=== PATIENT | female | born 1955 | race Caucasian/White ===

== ENCOUNTER 2016-10-13 14:52 | Emergency (ER) | payer MEDICAID, OTHER ==
[~2016-10-13] VITALS: Ht 165.1 cm; Wt 54.4 kg
[2016-10-13] MEDS ORDERED: ASPIRIN EC 81 MG TABLET.DR PO ONE (15:26)
[2016-10-13] MEDS ORDERED: ASPIRIN 81 MG TAB.CHEW PO ONE (15:30)
[2016-10-13 15:43] LABS: BASOPHILS % (AUTO) 0.6 % (0.0-2.0); EOSINOPHILS # (AUTO) 0.1 /CMM (0.0-0.7); EOSINOPHILS % (AUTO) 1.7 % (0.0-6.0); HEMATOCRIT 41 % (33-45); HEMOGLOBIN 13.9 g/dL (11.5-14.8); LYMPHOCYTES # (AUTO) 2.6 /CMM (0.8-4.8); MEAN CORPUSCULAR HEMOGLOBIN 31 PG (26.0-33.0); MEAN CORPUSCULAR HGB CONC 34 g/dl (31.0-36.0); MEAN CORPUSCULAR VOLUME 91 fL (82-100); MONOCYTES # (AUTO) 0.6 /CMM (0.1-1.30); MONOCYTES % (AUTO) 7.2 % (2.0-12.0); NEUTROPHILS % (AUTO) 59.5 % (43.0-81.0); PLATELET COUNT (AUTO) 285 /CMM (150-450); RDW COEFFICIENT OF VARIATION 12.3 (11.5-15.0); RED BLOOD CELL COUNT(AUTO) 4.49 MIL/uL (4.0-5.2); WHITE BLOOD COUNT (AUTO) 8.3 K/uL (4.3-11.0)
[2016-10-13 15:52] LABS: CARBON DIOXIDE 30 mmol/L (21-32); CHLORIDE 103 mmol/L (98-107); CREATININE 0.8 mg/dL (0.6-1.3); GFR 73 mL/min (>60); GLUCOSE 102 mg/dL (74-106); POTASSIUM 3.6 mmol/L (3.5-5.1); SODIUM SERUM 140 mmol/L (136-145); UREA NITROGEN, BLOOD 9 mg/dL (7-18)
[2016-10-13 15:55] LABS: INR 1.02 (0.87-1.13); PROTHROMBIN TIME 10.6 SECS (9.5-12.7)
[2016-10-13 16:02] LABS: TROPONIN I < 0.017 ng/mL (0.00-0.056)
[2016-10-13 17:21] LABS: THYROID STIMULATING HORMONE 0.216 uIU/mL (0.358-3.74)
[2016-10-13 18:08] VITALS: BP 133/82
== END 2016-10-13 18:09 | disposition home or self-care (01) ==
LOC: ER 14:54
DX: R00.2 Palpitations (principal); R20.9 Unspecified disturbances of skin sensation; E05.90 Thyrotoxicosis, unspecified without thyrotoxic crisis or storm; F32.9 Major depressive disorder, single episode, unspecified; I10 Essential (primary) hypertension; R79.1 Abnormal coagulation profile; F17.200 Nicotine dependence, unspecified, uncomplicated; I24.9 Acute ischemic heart disease, unspecified; Z88.0 Allergy status to penicillin; Z72.0 Tobacco use; Z71.6 Tobacco abuse counseling
CPT/HCPCS: 36415; 71010; 80048; 84439; 84443; 84484; 85025; 85378; 85730; 93005; 99285; 99406; A4606; Z7610

== ENCOUNTER 2018-10-03 10:24 | Emergency (ER) | payer MEDICAID ==
[~2018-10-03] VITALS: Ht 167.6 cm; Wt 61.2 kg
[2018-10-03 10:24] VITALS: BP 127/75
== END 2018-10-03 10:52 | disposition home or self-care (01) ==
LOC: ER 10:28
DX: J20.9 Acute bronchitis, unspecified (principal); F10.10 Alcohol abuse, uncomplicated; F17.200 Nicotine dependence, unspecified, uncomplicated; Y90.9 Presence of alcohol in blood, level not specified; Z88.0 Allergy status to penicillin; Z90.710 Acquired absence of both cervix and uterus; Z60.2 Problems related to living alone
CPT/HCPCS: 99283; A4606

== ENCOUNTER 2021-08-15 13:20 | Inpatient (IN) | payer MEDICARE, OTHER ==
[~2021-08-15] VITALS: Ht 167.6 cm; Wt 61.2 kg
--- NOTE | 2021-08-15 13:40 | NUR ---
assume pt care, pt here c/o pressure like chest pain, non radiating, heaviness since last night. worst taking deep breaths. pt is a smoker, placed on monitor. stable vitals captain room service. [id number]. awaiting md nj.
--- NOTE | 2021-08-15 14:01 | NUR ---
dr alba at bedside for eval.
--- NOTE | 2021-08-15 14:10 | NUR ---
iv line started blood drawn and sent to lab.
[2021-08-15 14:46] LABS: BASOPHILS # (AUTO) 0.1 K/uL (0.0-0.2); BASOPHILS % (AUTO) 1.1 % (0.0-2.0); EOSINOPHILS % (AUTO) 3.5 % (0.0-6.0); HEMATOCRIT 41 % (33-45); HEMOGLOBIN 13.7 g/dL (11.5-14.8); LYMPHOCYTES # (AUTO) 1.9 K/uL (0.8-4.8); LYMPHOCYTES % (AUTO) 22.6 % (20.0-44.0); MEAN CORPUSCULAR HGB CONC 34 g/dl (31.0-36.0); MEAN CORPUSCULAR VOLUME 93 fL (82-100); MONOCYTES # (AUTO) 0.7 K/uL (0.1-1.30); MONOCYTES % (AUTO) 8.7 % (2.0-12.0); NEUTROPHILS # (AUTO) 5.3 K/uL (1.8-8.9); NEUTROPHILS % (AUTO) 64.1 % (43.0-81.0); PLATELET COUNT (AUTO) 274 K/uL (150-450); RED BLOOD CELL COUNT(AUTO) 4.37 MIL/uL (4.0-5.2); WHITE BLOOD COUNT (AUTO) 8.3 K/uL (4.3-11.0)
[2021-08-15 15:18] LABS: CALCIUM, SERUM 9.1 mg/dL (8.5-10.1); CARBON DIOXIDE 30 mmol/L (21-32); CHLORIDE 101 mmol/L (98-107); CREATININE 0.7 mg/dL (0.6-1.3); GLUCOSE 104 mg/dL (74-106); POTASSIUM 3.5 mmol/L (3.5-5.1); SODIUM SERUM 137 mmol/L (136-145); UREA NITROGEN, BLOOD 7 mg/dL (7-18)
[2021-08-15 15:31] LABS: ALANINE AMINOTRANSFERASE 29 U/L (12-78); ALKALINE PHOSPHATASE 100 U/L (46-116); ASPARTATE AMINOTRANSFERASE 16 U/L (15-37); BILIRUBIN,DIRECT 0.2 mg/dL (0.0-0.2); BILIRUBIN,TOTAL 0.6 mg/dL (0.2-1.0); TOTAL PROTEIN, SERUM 7.7 g/dL (6.4-8.2)
[2021-08-15] MEDS ORDERED: TEMA30CA PO (15:48)
[2021-08-15] MEDS ORDERED: PROP50TA3 PO (15:48)
[2021-08-15] MEDS ORDERED: ATOR20TA PO (15:48)
[2021-08-15] MEDS ORDERED: BENA20TA9 PO (15:48)
[2021-08-15] MEDS ORDERED: ASPIRIN 81 MG TAB.CHEW PO ONE (16:00)
[2021-08-15] MEDS ORDERED: HYDROCODONE/APAP 5/325MG TABLET PO PRN (16:30)
[2021-08-15] MEDS ORDERED: LORAZEPAM 1 MG TABLET PO PRN (16:30)
[2021-08-15] MEDS ORDERED: ACETAMINOPHEN 325 MG TABLET PO PRN (16:30)
[2021-08-15] MEDS ORDERED: TEMAZEPAM 15 MG CAPSULE PO PRN (16:30)
[2021-08-15] MEDS ORDERED: MAGNESIUM HYDROXIDE 30 ML UDC PO PRN (16:30)
[2021-08-15] MEDS ORDERED: MORPHINE SULFATE INJ 2 MG/ML DISP.SYRIN IV PRN (16:30)
[2021-08-15] MEDS ORDERED: MAG HYDROX/AL HYDROX/SIMETH 30 ML UDC PO PRN (16:30)
[2021-08-15] MEDS ORDERED: ONDANSETRON HCL/PF 4 MG/2 ML VIAL IVP PRN (16:30)
--- NOTE | 2021-08-15 16:30 | NUR ---
unable to give ordered lovenox at this time. unverified order.
--- NOTE | 2021-08-15 16:35 | NUR ---
pt resting in bed. stable vitals. denies chest pain at this time. will continue to monitor.
[2021-08-15] MEDS ORDERED: ASPIRIN 81 MG TAB.CHEW ONE (17:04)
--- NOTE | 2021-08-15 19:12 | NUR ---
report to product development ecologist nurse viji LARA for diego.
[2021-08-15] MEDS ORDERED: ENOXAPARIN SODIUM 40 MG/0.4 ML DISP.SYRIN SQ SCH (20:00)
[2021-08-15] MEDS ORDERED: Z GUARD REMEDY 4 OZ OINT TP PRN (20:30)
[2021-08-15] MEDS ORDERED: ENOXAPARIN SODIUM 40 MG/0.4 ML DISP.SYRIN SQ ONE (20:49)
[2021-08-15] MEDS: BENAZEPRIL HCL 20 MG TABLET PO SCH (21:06)
[2021-08-15] MEDS ORDERED: Medication Not On Formulary EA (Atorvastatin Calcium (Lipitor) 20 MG) PO SCH (22:00)
[2021-08-15] MEDS ORDERED: ATORVASTATIN 10 MG TABLET PO SCH (22:00)
[2021-08-15] MEDS ORDERED: ATORVASTATIN 10 MG TABLET ONE (22:24)
[2021-08-16] MEDS ORDERED: LORAZEPAM 1 MG TABLET ONE (01:20)
--- NOTE | 2021-08-16 01:24 | NUR ---
PT C/O OF INSOMNIA. ADMINISTERED ATIVAN 1MG PO ORDERED. VSS. WILL REASSESS PT
[2021-08-16 04:45] LABS: BASOPHILS # (AUTO) 0.1 K/uL (0.0-0.2); BASOPHILS % (AUTO) 0.7 % (0.0-2.0); HEMATOCRIT 40 % (33-45); HEMOGLOBIN 13.7 g/dL (11.5-14.8); LYMPHOCYTES # (AUTO) 2.5 K/uL (0.8-4.8); LYMPHOCYTES % (AUTO) 33.9 % (20.0-44.0); MEAN CORPUSCULAR HGB CONC 34 g/dl (31.0-36.0); MEAN CORPUSCULAR VOLUME 93 fL (82-100); MONOCYTES # (AUTO) 0.7 K/uL (0.1-1.30); MONOCYTES % (AUTO) 8.9 % (2.0-12.0); NEUTROPHILS # (AUTO) 3.8 K/uL (1.8-8.9); NEUTROPHILS % (AUTO) 51.5 % (43.0-81.0); PLATELET COUNT (AUTO) 251 K/uL (150-450); RED BLOOD CELL COUNT(AUTO) 4.29 MIL/uL (4.0-5.2); WHITE BLOOD COUNT (AUTO) 7.4 K/uL (4.3-11.0)
[2021-08-16 05:09] LABS: CALCIUM, SERUM 8.9 mg/dL (8.5-10.1); CARBON DIOXIDE 27 mmol/L (21-32); CHLORIDE 102 mmol/L (98-107); CREATININE 0.8 mg/dL (0.6-1.3); GLUCOSE 114 mg/dL (74-106); MAGNESIUM 2.2 mg/dL (1.8-2.4); POTASSIUM 3.7 mmol/L (3.5-5.1); SODIUM SERUM 136 mmol/L (136-145); UREA NITROGEN, BLOOD 12 mg/dL (7-18)
--- NOTE | 2021-08-16 06:54 | NUR ---
PT SLEEPING IN BED. ON R/A; TOLERATING WELL WITH NO SOB AT 100%. NO S/SX OF PAIN AT THIS TIME. LAC#20G S/L; PATENT AND INTACT. PT CONNECTED TO MONITOR AND POX. SAFETY MEASURES IN PLACE; BED IN LOWEST LOCKED POSITION, SIDE RAILS UPX2, CALL LIGHT WITHIN EASY REACH. ALL NEEDS MET AT THIS TIME. WILL ENDORSE DAPHNIE TO ONCOMING MORNING RN
[2021-08-16] MEDS ORDERED: PANTOPRAZOLE 40 MG TABLET.DR PO SCH (07:30)
[2021-08-16] MEDS ORDERED: BENAZEPRIL HCL 10 MG TABLET ONE (08:02)
[2021-08-16] MEDS ORDERED: PANTOPRAZOLE 40 MG TABLET.DR PO ONE (08:03)
[2021-08-16] MEDS ORDERED: ASPIRIN 81 MG TAB.CHEW ONE (08:03)
[2021-08-16] MEDS: BENAZEPRIL HCL 20 MG TABLET PO SCH (08:30)
--- NOTE | 2021-08-16 08:33 | NUR ---
TAKEN TO CT
[2021-08-16] MEDS ORDERED: CT SWABBABLE VALVE TRANS SET 1 EA INFUS.SET MC ONE (08:41)
[2021-08-16] MEDS ORDERED: NITROGLYCERIN 0.4 MG/TAB BOTTLE ONE (08:41)
[2021-08-16] MEDS ORDERED: IOHEXOL-350 100 ML VIAL IV ONE ×2 (08:41→09:06)
[2021-08-16] MEDS ORDERED: METOPROLOL TARTRATE INJ 5 MG/5 ML AMPUL ONE (08:41)
[2021-08-16] MEDS ORDERED: IV NS 0.9% 250 ML IV ONE (08:42)
[2021-08-16] MEDS ORDERED: IV NS 0.9% 500 ML IV ONE (08:49)
[2021-08-16] MEDS: METOPROLOL TARTRATE INJ 5 MG/5 ML AMPUL IVP PRN ×2 (08:55→09:00)
[2021-08-16] MEDS ORDERED: ASPIRIN 81 MG TAB.CHEW PO SCH (09:00)
[2021-08-16] MEDS ORDERED: NITROGLYCERIN 0.4 MG/TAB BOTTLE SL ONE (09:00)
--- NOTE | 2021-08-16 10:21 | NUR ---
Renzo mcmahan in [facility] - 08/16/21 at 1200 by [place]Y [place] [id number]
--- NOTE | 2021-08-16 13:00 | NUR ---
IV removed. Catheter intact and site benign. Pressure and 4x4 applied to site. No bleeding noted.Patient discharged to home in stable condition. Written and verbal after care instructions given. Patient verbalizes understanding of instruction.
[2021-08-16 15:09] VITALS: BP 127/73
== END 2021-08-16 13:00 | disposition home or self-care (01) | DRG 303 ==
LOC: ER 14:37 → TRANSITION 18:28
PROVIDERS: ADMIT Nurse Practitioner Acute Care; ATTEND Nurse Practitioner Acute Care
DX: I25.10 Atherosclerotic heart disease of native coronary artery without angina pectoris (principal); I10 Essential (primary) hypertension; F29 Unspecified psychosis not due to a substance or known physiological condition; Z90.710 Acquired absence of both cervix and uterus; F17.210 Nicotine dependence, cigarettes, uncomplicated; Z20.822 Contact with and (suspected) exposure to COVID-19; Z79.899 Other long term (current) drug therapy; F41.9 Anxiety disorder, unspecified; Z80.3 Family history of malignant neoplasm of breast; Z82.49 Family history of ischemic heart disease and other diseases of the circulatory system; Z83.3 Family history of diabetes mellitus
CPT/HCPCS: 36415; 71045-TC; 75574; 80048-TC; 80076-TC; 83735-TC; 83880; 84100-TC; 84484-TC; 85025-TC; 85378-TC; 87081-TC; 93307-TC; C9803; G0378; J1650; J3490; J7040; J7050; Q9967

== ENCOUNTER 2024-08-01 09:35 | Emergency (ER) | payer MEDICARE, OTHER ==
[~2024-08-01] VITALS: Ht 167.6 cm; Wt 59.0 kg
[~2024-08-01 09:35] MED LIST: ATOR20TA PO; BENA20TA9 PO; PROP50TA3 PO; TEMA30CA PO
[2024-08-01 11:46] VITALS: BP 129/86; TEMP 98; O2SAT 98
== END 2024-08-01 11:46 | disposition home or self-care (01) ==
LOC: ER 09:37
DX: S92.321A Displaced fracture of second metatarsal bone, right foot, initial encounter for closed fracture (principal); S92.331A Displaced fracture of third metatarsal bone, right foot, initial encounter for closed fracture; E78.5 Hyperlipidemia, unspecified; F17.200 Nicotine dependence, unspecified, uncomplicated; I10 Essential (primary) hypertension; Z60.2 Problems related to living alone; Z88.0 Allergy status to penicillin; Z90.710 Acquired absence of both cervix and uterus; W01.0XXA Fall on same level from slipping, tripping and stumbling without subsequent striking against object, initial encounter; Y93.89 Activity, other specified; Y92.89 Other specified places as the place of occurrence of the external cause; Y99.8 Other external cause status
CPT/HCPCS: 73610-TC; 73630-TC